=== PATIENT | female | born 1955 | race Caucasian/White ===

== ENCOUNTER → 2020-10-15 | Outpatient (CLI) | payer OTHER ==
[~2020-10-15] MED LIST: AZELASTINE137 MCG/0. INH; CALTRATE 600 +1 EAC1 PO; FISH OIL500 MG PO; FLONASE 0.05% N16 GM INH; HYDROCHLOROTHIA25 MG PO; MOBIC15 MG PO; NORETHINDRONE AC5 MG PO; PRILOSEC OTC20 MG PO; TENORMIN 50 MG50 MG PO; XYZAL5 MG PO
== END ==
LOC: ECHO 10-12 11:00
DX: R01.1 Cardiac murmur, unspecified (principal); I08.2 Rheumatic disorders of both aortic and tricuspid valves; I27.20 Pulmonary hypertension, unspecified
CPT/HCPCS: ECHO; 93306